=== PATIENT | female | born 2000 | race Caucasian/White ===

== ENCOUNTER 2019-05-16 12:44 | Emergency (ER) | payer BC ==
[~2019-05-16] VITALS: Ht 172.7 cm; Wt 65.8 kg
[2019-05-16 12:59] VITALS: BP 134/88
--- NOTE | 2019-05-16 13:14 | PHYS DOC ---
Past History Past Medical History: No Pertinent History Past Surgical History: Other Additional Past Surgical Histo: WISDOM TEETH, FOOT SURGERY Alcohol Use: None Drug Use: None Adult General Chief Complaint Chief Complaint: ABDOMINAL PAIN HPI HPI 19-year-old female presents to the emergency department with complaints of abdominal cramping, diarrhea with intermittent blood, nausea. Patient states cramping started on Monday was worse yesterday morning with evidence of diarrhea, she states she's had multiple stools. She denies any vomiting however is complaining nausea and diarrhea as discussed above. She denies any fever, decreased appetite. Last menstrual. One month ago. Review of Systems Review of Systems Constitutional: Denies fever or chills [] Respiratory: Denies cough or shortness of breath [] Cardiovascular: No additional information not addressed in HPI [] GI: Abdominal pain, diarrhea, nausea, intermittent bloody stool : Denies dysuria or hematuria [] Integument: Denies rash or skin lesions [] Neurologic: Denies headache, focal weakness or sensory changes [] All other systems were reviewed and found to be within normal limits, except as documented in this note. Current Medications Current Medications Current Medications Medications (Trade) Dose Ordered Sig/Rylee Start Time Stop Time Status Last Admin Dose Admin Dicyclomine HCl (Bentyl) 10 mg 1X ONCE 05/16/19 13:45 05/16/19 13:46 Allergies Allergies Allergies Coded Allergies Type Severity Reaction Last Updated Verified No Known Drug Allergies 05/16/19 No Physical Exam Physical Exam Constitutional: Well developed, well nourished, no acute distress, non-toxic appearance. [] HENT: Normocephalic, atraumatic, bilateral external ears normal, oropharynx moist, no oral exudates, nose normal. [] Eyes: PERRLA, EOMI, conjunctiva normal, no discharge. [] Cardiovascular:Heart rate regular rhythm, no murmur [] Lungs & Thorax: Bilateral breath sounds clear to auscultation [] Abdomen: Bowel sounds normal, soft, no tenderness, no masses, no pulsatile masses. [] Skin: Warm, dry, no erythema, no rash. [] Extremities: No tenderness, no cyanosis, no clubbing, ROM intact, no edema. [] Neurologic: Alert and oriented X 3, no focal deficits noted. [] Psychologic: Affect normal, judgement normal, mood normal. [] Current Patient Data Vital Signs Vital Signs Date Time Temp Pulse Resp B/P (MAP) Pulse Ox O2 Delivery O2 Flow Rate FiO2 05/16/19 12:59 98.5 80 18 99 Room Air Lab Results Laboratory Tests Test 05/16/19 13:10 05/16/19 13:14 White Blood Count 7.1 x10^3/uL Red Blood Count 4.62 x10^6/uL Hemoglobin 14.2 g/dL Hematocrit 41.5 % Mean Corpuscular Volume 90 fL Mean Corpuscular Hemoglobin 31 pg Mean Corpuscular Hemoglobin Concent 34 g/dL Red Cell Distribution Width 12.4 % Platelet Count 223 x10^3/uL Neutrophils (%) (Auto) 77 % Lymphocytes (%) (Auto) 16 % Monocytes (%) (Auto) 6 % Eosinophils (%) (Auto) 1 % Basophils (%) (Auto) 0 % Neutrophils # (Auto) 5.4 x10^3uL Lymphocytes # (Auto) 1.1 x10^3/uL Monocytes # (Auto) 0.4 x10^3/uL Eosinophils # (Auto) 0.1 x10^3/uL Basophils # (Auto) 0.0 x10^3/uL Sodium Level 139 mmol/L Potassium Level 3.7 mmol/L Chloride Level 103 mmol/L Carbon Dioxide Level 25 mmol/L Anion Gap 11 Blood Urea Nitrogen 11 mg/dL Creatinine 1.0 mg/dL Estimated GFR (Cockcroft-Gault) 70.0 BUN/Creatinine Ratio 11 Glucose Level 82 mg/dL Calcium Level 8.8 mg/dL Total Bilirubin 0.5 mg/dL Aspartate Amino Transf (AST/SGOT) 18 U/L Alanine Aminotransferase (ALT/SGPT) 15 U/L Alkaline Phosphatase 59 U/L C-Reactive Protein 27.1 mg/L Total Protein 7.5 g/dL Albumin 3.8 g/dL Albumin/Globulin Ratio 1.0 Urine Collection Type Unknown Urine Color Akanksha Urine Clarity Hazy Urine pH 5.5 Urine Specific [place] >=1.030 Urine Protein Trace Urine Glucose (UA) Neg mg/dL Urine Ketones (Stick) 80 mg/dL Urine Blood Trace Urine Nitrite Neg Urine Bilirubin Neg Urine Urobilinogen Dipstick 0.2 mg/dL Urine Leukocyte Esterase Neg Urine RBC 1-2 /HPF Urine WBC 1-4 /HPF Urine Squamous Epithelial Cells Mod /LPF Urine Bacteria Few /HPF Urine Mucus Mod /LPF Urine Test Negative Current Medications Medications (Trade) Dose Ordered Sig/Rylee Route PRN Reason Start Time Stop Time Status Last Admin Dose Admin Dicyclomine HCl (Bentyl) 10 mg 1X ONCE IM 05/16/19 13:45 05/16/19 13:46 DC Iohexol (Omnipaque 300 Mg/ml) 75 ml 1X ONCE IV 05/16/19 13:15 05/16/19 13:20 DC 05/16/19 14:20 Ondansetron HCl (Zofran) 4 mg 1X ONCE IV 05/16/19 13:45 05/16/19 13:46 DC 05/16/19 13:59 Info (Do NOT chart on this entry -- for MONITORING) 1 each PRN DAILY PRN MC SEE COMMENTS 05/16/19 13:30 05/18/19 13:29 Dicyclomine HCl (Bentyl) 20 mg STK-MED ONCE .ROUTE 05/16/19 14:01 05/16/19 14:01 DC Dicyclomine HCl (Bentyl) 20 mg 1X ONCE PO 05/16/19 14:15 05/16/19 14:16 DC 05/16/19 14:05 EKG EKG [] Radiology/Procedures Radiology/Procedures [address] [address] IMAGING REPORT Signed PATIENT: RUI HAWK ACCOUNT: [id number] : 2000 LOCATION: ER AGE: 19 SEX: F EXAM STATUS: PRE ER ORD. PHYSICIAN: LAUREN GU MD REASON: abdominal pain, lower, intermittent bloody stool PROCEDURE: CT ABD PELV W/ IV CONTRST ONLY CT ABD PELV W/ IV CONTRST ONLY Indication: Abdominal pain, intermittent bloody stool Technique: Postcontrast CT imaging was performed of the abdomen pelvis, multiplanar reconstruction images submitted. No oral contrast was given. One or more of the following individualized dose reduction techniques were utilized for this examination: 1. Automated exposure control 2. Adjustment of the mA and/or kV according to patient size 3. Use of iterative reconstruction technique. Comparison: None Findings: There is no significant abnormality of the limited visualized lung bases. No focal abnormality is identified of the liver, pancreas, spleen. Gallbladder is present without obvious intraluminal abnormality by CT. Both kidneys enhance, no hydronephrosis. There is no adrenal nodularity. Accurate evaluation of bowel is limited without oral contrast. Bowel is not significantly dilated. There is no free fluid or free air. Normal caliber appendix is visualized without adjacent inflammatory-type change. No significant inflammatory type change is seen about the bowel. There is appearance of at least mild long segment wall thickening such as of the transverse through descending colon. There is mild lumbar dextroscoliosis. IMPRESSION: 1. Suboptimally evaluated without oral contrast, there is appearance of at least mild long segment wall thickening of the transverse and descending colon as may be seen with colitis in the appropriate clinical setting. There is no CT evidence of acute appendicitis or evidence of bowel obstruction. Electronically signed by: Ana Whitley MD (05/16/2019 2:35 PM) [id number] DICTATED AND SIGNED BY: ANA WHITLEY MD DATE: 05/16/19 9335 CC: LAUREN GU MD ~ [] Course & Med Decision Making Course & Med Decision Making Pertinent Labs and Imaging studies reviewed. (See chart for details) []19-year-old female presents to the emergency department with complaints of abdominal cramping, diarrhea with intermittent blood, nausea. Patient states cramping started on Monday was worse yesterday morning with evidence of diarrhea, she states she's had multiple stools. She denies any vomiting however is complaining nausea and diarrhea as discussed above. She denies any fever, de creased appetite. Last menstrual. One month ago. Labs and imaging reviewed. Patient with evidence of colitis per CT. WBC within normal limits. Bentyl/Zofran provided in ER. Discussed findings with patient, will plan for cipro and flagyl x 10 days. Recommend follow up with PCP after abx for further GI referral and follow up Yamila Disclaimer Yamila Disclaimer This electronic medical record was generated, in whole or in part, using a voice recognition dictation system. Departure Departure: Impression: Primary Impression: Colitis Additional Impression: Abdominal pain Disposition: 01 HOME, SELF-CARE Condition: STABLE Patient Instructions: Colitis Additional Instructions: Recommend follow up with PCP Take antibiotics as directed Take bentyl for pain/cramps as directed Return to the ER with worsening pain/cramps Will need further GI evaluation after abx completed Scripts Metronidazole (FLAGYL) 500 Mg Tablet 500 MG PO TID for colitis for 10 Days, #30 TAB Prov: LAUREN GU MD 05/16/19 Ciprofloxacin Hcl (CIPRO) 250 Mg Tablet 2 TAB PO BID for urinary tract infection for 10 Days, #40 TAB Prov: LAUREN GU MD 05/16/19 Problem Qualifiers Additional Impression: Abdominal pain Abdominal location: generalized Qualified Codes: R10.84 - Generalized abdominal pain LAUREN GU MD May 16, 2019 13:14
[2019-05-16] MEDS ORDERED: IOHEXOL 300 MG/ML 75 ML VIAL. IV ONE (13:15)
[2019-05-16 13:21] LABS: BASO % 0 % (0-3); EOS # 0.1 x10^3/uL (0.0-0.7); EOS % 1 % (0-3); HEMATOCRIT 41.5 % (36.0-47.0); HEMOGLOBIN 14.2 g/dL (12.0-15.5); LYMPH # 1.1 x10^3/uL (1.0-4.8); LYMPH % 16 % (24-48); MEAN CORPUSCULAR HEMOGLOBIN 31 pg (25-35); MEAN CORPUSCULAR HGB CONC 34 g/dL (31-37); MEAN CORPUSCULAR VOLUME 90 fL (79-100); MONO # 0.4 x10^3/uL (0.0-1.1); MONO % 6 % (0-9); NEUT # 5.4 x10^3uL (1.8-7.7); NEUT % 77 % (31-73); PLATELET COUNT 223 x10^3/uL (140-400); RED BLOOD COUNT 4.62 x10^6/uL (3.50-5.40); RED CELL DISTRIBUTION WIDTH 12.4 % (11.5-14.5); WHITE BLOOD COUNT 7.1 x10^3/uL (4.0-11.0)
[2019-05-16] MEDS ORDERED: CONTRAST GIVEN MC PRN (13:30)
[2019-05-16 13:35] LABS: ALBUMIN 3.8 g/dL (3.4-5.0); CALCIUM 8.8 mg/dL (8.5-10.1); POTASSIUM 3.7 mmol/L (3.5-5.1); TOTAL BILIRUBIN 0.5 mg/dL (0.2-1.0); TOTAL PROTEIN 7.5 g/dL (6.4-8.2)
[2019-05-16] MEDS ORDERED: ONDANSETRON PF 4 MG/2 ML VIAL. IV ONE (13:45)
[2019-05-16] MEDS ORDERED: DICYCLOMINE 20 MG/2 ML AMPUL. IM ONE (13:45)
[2019-05-16 13:46] LABS: BILIRUBIN,URINE NEG (NEG); CLARITY,URINE HAZY; COLOR,URINE AMBER; GLUCOSE,URINE NEG (NEG)
[2019-05-16 13:47] LABS: BACTERIA,URINE FEW /HPF (0-FEW); NITRITE,URINE NEG (NEG); SQUAMOUS EPITHELIAL CELL,UR MOD /LPF; U PREG PATIENT NEGATIVE (NEG); UROBILINOGEN,URINE 0.2 mg/dL (0.2 mg/dL)
[2019-05-16] MEDS ORDERED: DICYCLOMINE HCL 20 MG TABLET ONE (14:01)
[2019-05-16] MEDS ORDERED: DICYCLOMINE HCL 20 MG TABLET PO ONE (14:15)
--- NOTE | 2019-05-16 14:38 | RAD ---
CT ABD PELV W/ IV CONTRST ONLY Indication: Abdominal pain, intermittent bloody stool Technique: Postcontrast CT imaging was performed of the abdomen pelvis, multiplanar reconstruction images submitted. No oral contrast was given. One or more of the following individualized dose reduction techniques were utilized for this examination: 1. Automated exposure control 2. Adjustment of the mA and/or kV according to patient size 3. Use of iterative reconstruction technique. Comparison: None Findings: There is no significant abnormality of the limited visualized lung bases. No focal abnormality is identified of the liver, pancreas, spleen. Gallbladder is present without obvious intraluminal abnormality by CT. Both kidneys enhance, no hydronephrosis. There is no adrenal nodularity. Accurate evaluation of bowel is limited without oral contrast. Bowel is not significantly dilated. There is no free fluid or free air. Normal caliber appendix is visualized without adjacent inflammatory-type change. No significant inflammatory type change is seen about the bowel. There is appearance of at least mild long segment wall thickening such as of the transverse through descending colon. There is mild lumbar dextroscoliosis. IMPRESSION: 1. Suboptimally evaluated without oral contrast, there is appearance of at least mild long segment wall thickening of the transverse and descending colon as may be seen with colitis in the appropriate clinical setting. There is no CT evidence of acute appendicitis or evidence of bowel obstruction. Electronically signed by: Eugene Hull MD (05/16/2019 2:35 PM) [id number]
[2019-05-16] MEDS ORDERED: METR500T PO (15:17)
[2019-05-16] MEDS ORDERED: CIPR250T30 PO (15:17)
== END 2019-05-16 15:36 | disposition home or self-care (01) ==
LOC: ER 12:44
DX: K52.9 Noninfective gastroenteritis and colitis, unspecified (principal)
CPT/HCPCS: 36415; 74177; 80053; 81001; 81025; 85025; 86140; 96374; 99285; J2405; Q9967

== ENCOUNTER 2019-10-08 13:36 | Emergency (ER) | payer BC ==
[~2019-10-08] VITALS: Ht 172.7 cm; Wt 75.9 kg
[~2019-10-08 13:36] MED LIST: CIPR250T30 PO; METR500T PO
[2019-10-08] MEDS ORDERED: IV NORMAL SALINE 1,000ML 1,000 ML IV SCH (14:25)
--- NOTE | 2019-10-08 15:00 | PHYS DOC ---
Past History Past Medical History: No Pertinent History Past Surgical History: Other Additional Past Surgical Histo: WISDOM TEETH, FOOT SURGERY Alcohol Use: None Drug Use: None Adult General Chief Complaint Chief Complaint: CHEST PAIN-NON CARDIAC NATURE HPI HPI 19-year-old female presents with chest pain. The patient has been having upper chest discomfort all day. She woke up when the pain started shortly after. She has not anything to eat today. She does occasionally get heartburn. She denies smoking, alcohol, or drug use. She used to vape, but quit over a month ago. She has no cardiac history. She does not want to get her blood drawn because she had a bad experience recently. She came here because the school nurse told her to. She is a college student. She denies trauma or falls. She denies overuse injury. Review of Systems Review of Systems Constitutional: Denies fever or chills [] Eyes: Denies change in visual acuity, redness, or eye pain [] HENT: Denies nasal congestion or sore throat [] Respiratory: Denies cough or shortness of breath [] Cardiovascular: No additional information not addressed in HPI [] GI: Denies abdominal pain, nausea, vomiting, bloody stools or diarrhea [] : Denies dysuria or hematuria [] Musculoskeletal: Denies back pain or joint pain [] Integument: Denies rash or skin lesions [] Neurologic: Denies headache, focal weakness or sensory changes [] Endocrine: Denies polyuria or polydipsia [] All other systems were reviewed and found to be within normal limits, except as documented in this note. Current Medications Current Medications Current Medications Medications (Trade) Dose Ordered Sig/[facility] Start Time Stop Time Status Last Admin Dose Admin Sodium Chloride 1,000 ml @ 1,000 mls/hr Q1H 10/08/19 14:25 10/08/19 15:24 Allergies Allergies Allergies Coded Allergies Type Severity Reaction Last Updated Verified No Known Drug Allergies 05/16/19 No Physical Exam Physical Exam Constitutional: Well developed, well nourished, no acute distress, non-toxic appearance. [] HENT: Normocephalic, atraumatic, bilateral external ears normal, oropharynx moist, no oral exudates, nose normal. [] Eyes: PERRLA, EOMI, conjunctiva normal, no discharge. [] Neck: Normal range of motion, no tenderness, supple, no stridor. [] Cardiovascular: Heart rate regular rhythm, no murmur. Upper chest tenderness to palpation [] Lungs & Thorax: Bilateral breath sounds clear to auscultation [] Abdomen: Bowel sounds normal, soft, no tenderness, no masses, no pulsatile masses. [] Skin: Warm, dry, no erythema, no rash. [] Back: No tenderness, no CVA tenderness. [] Extremities: No tenderness, no cyanosis, no clubbing, ROM intact, no edema. [] Neurologic: Alert and oriented X 3, normal motor function, normal sensory function, no focal deficits noted. [] Psychologic: Affect normal, judgement normal, mood normal. [] Current Patient Data Lab Results Laboratory Tests Test 10/08/19 14:55 POC Urine HCG, Qualitative hcg negative (Negative) EKG EKG Sinus rhythm, rate 78, normal axis, no ST elevations or depressions.[] Radiology/Procedures Radiology/Procedures [] Impressions: CHEST PA LATERAL History: Chest pain Comparison: None. Findings: No consolidation or pleural effusion. Normal heart size. No pneumothorax. Impression: 1. No acute cardiopulmonary process. Electronically signed by: Khoa Jerry DO (10/08/2019 3:10 PM) [id number] DICTATED AND SIGNED BY: KHOA JERRY DO DATE: 10/08/19 151 CC: ALYSE THOMAS DO; FRANK DIAZ Course & Med Decision Making Course & Med Decision Making Pertinent Labs and Imaging studies reviewed. (See chart for details) The patient appears quite well on exam. She is just nervous about this discomfort that she has not really had before. She does not want us to draw blood because of her recent experience. I told her that I can't get a very complete picture was going on with a blood work. She understands these risks. Her EKG is unremarkable. The patient chest x-ray is unremarkable. I offered to give her a GI cocktail. She refused because her grandpa told her to just get her chest x-ray results him follow up with her doctor at home in [place]. The patient elected to sign out AMA. [] Dragon Disclaimer Dragon Disclaimer This electronic medical record was generated, in whole or in part, using a voice recognition dictation system. The HEART Score for CP Pts HEART Score for Chest Pain: HEART Score for Chest Pain Response (Comments) Value History Slighlty/Non-Suspicious 0 ECG Normal 0 Age < 45 0 Risk Factors No Risk Factors 0 Total 0 Risk Factors: Risk Factors: DM, Current or recent (<one month) smoker, HTN, HLP, family history of CAD, obesity. Risk Scores: Score 0 - 3: 2.5% MACE over next 6 weeks - Discharge Home Score 4 - 6: 20.3% MACE over next 6 weeks - Admit for Clinical Observation Score 7 - 10: 72.7% MACE over next 6 weeks - Early Invasive Strategies Departure Departure: Disposition: 07 AGAINST MEDICAL ADVICE Condition: STABLE Referrals: FRANK DIAZ (PCP) ALYSE THOMAS DO Oct 08, 2019 15:00
--- NOTE | 2019-10-08 15:13 | RAD ---
CHEST PA LATERAL History: Chest pain Comparison: None. Findings: No consolidation or pleural effusion. Normal heart size. No pneumothorax. Impression: 1. No acute cardiopulmonary process. Electronically signed by: Prince Peter DO (10/08/2019 3:10 PM) [id number]
[2019-10-08 15:14] LABS: BACTERIA,URINE FEW /HPF (0-FEW); BILIRUBIN,URINE NEG (NEG); CLARITY,URINE CLEAR; COLOR,URINE YELLOW; GLUCOSE,URINE NEG (NEG); NITRITE,URINE NEG (NEG); RBC,URINE RARE /HPF (0-2); UROBILINOGEN,URINE 0.2 mg/dL (0.2 mg/dL); WBC,URINE 0 /HPF (0-4)
[2019-10-08 15:15] LABS: SQUAMOUS EPITHELIAL CELL,UR OCC /LPF
[2019-10-08] MEDS ORDERED: LIDO:MAALOX 1:1 20 ML SINGLE DOSE. PO ONE (15:15)
[2019-10-08 15:16] LABS: BARBITURATES NEG (NEG); BENZODIAZEPINES NEG (NEG); CANNABINOIDS POS (NEG); COCAINE NEG (NEG); METHADONE NEG (NEG); OPIATES NEG (NEG); PHENCYCLIDINE NEG (NEG)
[2019-10-08 15:19] LABS: AMPHETAMINE/METHAMPHETAMINE NEG (NEG)
--- NOTE | 2019-10-08 16:41 | EKG ---
[address] [address] Test Date: 2019-10-08 Test Time: 14:40:43 Pat Name: RUI HAWK Department: Room: Gender: F Optometrist/Practice Owner: : 2000 Requested By: ALYSE THOMAS Order Number: [id number] Reading MD: Measurements Intervals [place] Rate: 78 P: 39 RI: 142 QRS: 44 QRSD: 92 T: 23 QT: 376 QTc: 432 Interpretive Statements SINUS RHYTHM NORMAL ECG RI6.01 No previous ECG available for comparison
== END 2019-10-08 15:25 | disposition left against medical advice (07) ==
LOC: ER 13:36
DX: R07.89 Other chest pain (principal)
CPT/HCPCS: 36415; 71046; 80307; 81001; 81025; 93005; 99285